=== PATIENT | female | born 1975 | race Caucasian/White ===

== ENCOUNTER → 2016-05-20 | Outpatient (CLI) | payer OTHER ==
[~2016-05-20] MED LIST: ALPR0.25 PO; BUPR75TA5 PO; DULO20CA PO; FOLI1TAB16 PO; GABA-585 PO; GADOBUTROL 7.5 MMOL/7.5 ML VIAL IV ONE; LUBI8CAP3 PO; METH2.5T PO; OXYC-323 PO
--- NOTE | 2016-05-20 14:14 | KCIC ---
PROCEDURE MRI brain without and with contrast HISTORY Benign microadenoma, loss of peripheral vision, history of migraine headaches, confusion, memory loss TECHNIQUE Pre and post-contrast, multiplanar, multi sequential MR imaging was performed of the brain including dedicated images of the pituitary gland. Contrast: 13 cc Gadavist COMPARISON February 02, 2015 FINDINGS There is some motion degradation. There is again mild deviation of the infundibulum to the left. Overall size of the pituitary gland is within normal limits. Previously suggested focus of decreased enhancement of the central pituitary gland is difficult to confidently visualize on this exam. There is no new intracranial abnormality. There is some nonspecific increased CSF signal of the optic nerve sheaths bilaterally as seen previously. Paranasal sinuses are overall aerated. There is patchy mild thickening of the mastoid air cells bilaterally greater on the right as seen previously. There is preservation of the major arterial intracranial flow voids at the skull base although somewhat diminutive caliber of the basilar and vertebral artery flow voids which can be associated with presence of posterior communicating arteries although vasculature not fully evaluated. Cerebellar tonsils are normal in location. There is preservation of the marrow signal of the clivus. IMPRESSION 1. Previously suggested focus of decreased enhancement of the pituitary gland is difficult to confidently visualize on this exam, no new abnormality of the pituitary gland. There is no new intracranial abnormality. There is nonspecific increased CSF signal of the optic nerve sheaths bilaterally as seen previously. Findings may be incidental unless there is clinical suspicion for intracranial hypertension. Electronically signed by: Juan Magana MD (May 20, 2016 14:12:26)
== END | disposition home or self-care (01) ==
LOC: KCIC MRI 11:55
PROVIDERS: ATTEND Internal Medicine
DX: D35.2 Benign neoplasm of pituitary gland (principal)
CPT/HCPCS: 70553; A9585

== ENCOUNTER → 2016-10-07 | Outpatient (CLI) | payer OTHER ==
[~2016-10-07] MED LIST changes: -GADOBUTROL 7.5 MMOL/7.5 ML VIAL IV ONE
--- NOTE | 2016-10-07 13:55 | KCIC ---
EXAM: Cervical spine MRI without contrast. HISTORY: Neck pain and cervical radiculopathy. TECHNIQUE: Multiplanar, multisequence magnetic resonance imaging of the cervical spine was performed without contrast. COMPARISON: None. FINDINGS: There is no significant listhesis. The vertebral bodies are normal in height and the disc spaces are preserved. No spinal cord lesion is seen. The skull base and posterior fossa are unremarkable. There is a minimal shallow posterior central disc protrusion at C6-C7. There is minimal to mild facet arthropathy at multiple levels. There is no significant foraminal or central canal stenosis. IMPRESSION: No acute finding or significant foraminal or central canal stenosis. Electronically signed by: Shira Rose MD (10/07/2016 1:51 PM)
== END | disposition home or self-care (01) ==
LOC: KCIC MRI 12:49
PROVIDERS: ATTEND Internal Medicine
DX: M54.12 Radiculopathy, cervical region (principal); M12.88 Other specific arthropathies, not elsewhere classified, other specified site; M50.223 Other cervical disc displacement at C6-C7 level
CPT/HCPCS: 72141

== ENCOUNTER → 2017-01-02 | Outpatient (CLI) | payer OTHER ==
[~2017-01-02] MED LIST changes: +GADOBUTROL 7.5 MMOL/7.5 ML VIAL IV ONE; -LUBI8CAP3 PO; +LUBI8CAP4 PO
--- NOTE | 2017-01-02 11:48 | KCIC ---
MRI Brain with and without contrast History: Daily headaches, tunnel vision, bilateral field defects Technique: Multiplanar, multi sequential pre and postcontrast MR imaging was performed of the brain. Contrast: 13 cc Gadavist Comparison: May 20, 2016 Findings: There is no new intracranial abnormality. There is subtle vague focus of slightly decreased enhancement of the more central anterior pituitary gland up to 4 mm transverse by 2 to 3 mm CC by 3 mm AP as seen on coronal image 13 series 12 and sagittal image 10 series 11. Findings are difficult to visualize on the May 2016 exam although findings stable compared with the January 10, [id number] exam. No new abnormality is identified of the pituitary gland. There is no new asymmetric enhancement of the cavernous sinuses or Meckel's caves. Impression: 1. Subtle vague focus of slightly decreased enhancement of the anterior central pituitary gland is stable back to January 2015 exam, uncertain if a true hypoenhancing lesion or volume averaging with adjacent bone, no new abnormality of the pituitary gland. Electronically signed by: Kameron Magana MD (01/02/2017 11:45 AM) [facility]-[email or web address]
== END | disposition home or self-care (01) ==
LOC: KCIC MRI 09:57
PROVIDERS: ATTEND Internal Medicine
DX: H53.483 Generalized contraction of visual field, bilateral (principal); R51 Headache
CPT/HCPCS: 70553; A9585

== ENCOUNTER → 2017-07-06 | Outpatient (CLI) | payer OTHER | END | disposition home or self-care (01) | LOC: KCIC MRI 15:54 | DX: M54.6 Pain in thoracic spine (principal) | CPT/HCPCS: 72146 ==

== ENCOUNTER → 2017-08-12 | Outpatient (CLI) | payer OTHER ==
[2017-08-12] MEDS: GADOBUTROL 7.5 MMOL/7.5 ML VIAL IV ×2 (15:29)
== END | disposition home or self-care (01) ==
LOC: KCIC MRI 14:31
DX: R93.8 Abnormal findings on diagnostic imaging of other specified body structures (principal)
CPT/HCPCS: 72147; A9585

== ENCOUNTER → 2018-01-04 | Outpatient (CLI) | payer OTHER ==
[~2018-01-04] MED LIST changes: +CYAN1TAB28 PO; +ERGO500027 PO; -GADOBUTROL 7.5 MMOL/7.5 ML VIAL IV ONE; +MODA100T2 PO; +OMEP20TA63 PO; +OXYC10TA PO; +OXYC20TA34 PO; +RIZA10TA PO; +URSO250T9 PO
--- NOTE | 2018-01-04 15:35 | PAIN ---
DATE OF SERVICE: 01/04/2018 CHIEF COMPLAINT: Low back and left greater than right lower extremity pain. HISTORY OF PRESENT ILLNESS: This is a 42-year-old female who presents with history of pain for 10 plus years by her reports without any specific injury or accident she is aware of but gradually increasing overtime. Over the last 6 months or so, it has been getting much worse, mainly in the low back, mid back, and upper back. The patient reports it is radiating to her lower extremities more on the left side than the right, radiating to the lateral aspect of the thigh, anterior thigh, medial lower leg and medial calf. The patient reports it is also on the right side but not nearly as radiating. The patient reports it is across the low back, mid back, upper back shoulders, neck, again worse on the left side. The patient reports this is a constant pain that is sharp, stabbing, throbbing, shooting, numbness and tingling, radiating, aching and burning in quality in the distribution as well. The patient did have MRI scans of the cervical, lumbar and thoracic spines with lumbar spine showing degenerative disk disease throughout the L2-L3, L3-L4, L4-L5 and L5-S1 disk spaces but without significant central or lateral stenosis. Thoracic spine showing described cystic foci, which are not enhanced compatible with cyst. No significant thoracic or spinal stenosis or neural foraminal stenosis. The patient's cervical spine MRI showing posterior central disk protrusion C6-C7 but without significant foraminal or central spinal stenosis. Again, these lumbar spines were performed in 06/2016, thoracic in 08/2017 and cervical in 09/2017. The patient reports again significant pain mainly in the low back but then radiating into the mid, upper back as well as left lower extremity greater than right. The patient rates her disability rating from 0-10, 10 being the worst; a 9 with family and home responsibilities, recreation, social activities; 8 with sexual behavior; 7 with self-care and life support activities and 10 with occupational activities. The patient reports no loss of motor function but significant weakness and some stumbling with the left lower extremity, which fatigues much more easily than the right. The patient reports it awakens her from sleep 2-3 times a night, can affect her bowel or bladder control, but usually it is an increased urgency but no incontinence. The reports it does affect her ability to walk especially with left leg. She has had previous trigger point injections, physical therapy, chiropractic treatment, counseling as well as exercise, which is ongoing currently and doing physical therapy exercises on her own. The patient is also taking OxyContin 20 mg daily or twice daily oxycodone for breakthrough pain. She has tried Lyrica, hydrocodone, gabapentin without significant improvement where the oxycodone does help fairly significantly. ALLERGIES: THE PATIENT IS ALLERGIC TO CLINDAMYCIN. PAST MEDICAL HISTORY: Significant for obesity, headaches, dizziness, pituitary tumor, previous irritable bowel syndrome. PAST SURGICAL HISTORY: Include gastric sleeve in 2018, also previous hysterectomy in 2017 and x 2. CURRENT MEDICATIONS: Include Xanax, Amitiza, modafinil, oxycodone both extended release and intermediate release, Prilosec, Maxalt, ursodiol, vitamin D and vitamin B12. FAMILY HISTORY: Significant for multiple sclerosis, heart disease, diabetes, epilepsy, thyroid disease and cancers. SOCIAL HISTORY: The patient does not drink alcohol, does not smoke, does not use any illegal illicit or recreational drugs. She is , lives with her spouse, has 3 children living home with locally in [place], [place]. REVIEW OF SYSTEMS: Positive for those items mentioned in the history of present illness. All systems reviewed. It is complete, full and well documented on the patient's chart. PHYSICAL EXAMINATION: VITAL SIGNS: The patient's blood pressure is 124/70, pulse 77, respirations 18, temperature is 98.2 degrees Fahrenheit, height is 5 feet 8 inches, weight is 253 pounds. GENERAL: The patient is awake, alert, oriented, appropriate and very pleasant demeanor. HEENT: Head shows normocephalic and atraumatic. Extraocular movements are intact and symmetrical. Oral cavity: Mucous membranes moist and pink. Dentition is intact. The patient has a piercing on the right cheek. NECK: Shows anterior throat supple without palpable lymphadenopathy noted. Swallow reflex is symmetrical. CHEST: Shows normal on inspection. Breath sounds clear to auscultation bilaterally. HEART: Shows S1 and S2 clear. No murmurs auscultated. ABDOMEN: Soft, nontender and nondistended. No palpable organomegaly is noted. No rebound or guarding demonstrated. BACK: Shows spine grossly in the midline. Normal-appearing thoracic kyphosis, cervical lordotic curvature and lumbar lordotic curvature. No previous bruises, lesions, rashes, or scars noted. The patient's cervical paraspinous musculature shows symmetrical on inspection. Palpation shows some mild tenderness but only diffusely without radiation in the inferior and middle aspect of the cervical paraspinous musculature, bilaterally but without difficulty with rotational motion, which is complete, greater than 45 degrees, closer to 90 degrees right and left lateral as well as extension and full forward flexion without significant pain reported. The patient's upper back shows moderate tenderness in the palpation of the thoracic paraspinous musculature as well as rhomboid distribution but only diffusely without trigger points without radiation. Lumbar spine shows more firm musculature bilaterally in the lumbar paraspinous musculature but without significant trigger points, no radiation of pain, no tenderness over the spinous processes, sacrum or sacroiliac regions. The patient shows good rotation of motion of the lumbar spine, both laterally greater than 10 degrees right and left as well as extension greater than 10 degrees, forward flexion 45 degrees without significant pain reported. No tenderness with these maneuvers as well. EXTREMITIES: Lower extremities show deep tendon reflexes at 2+ in the patella and 1+ tendo calcaneus tendons. Motor exam is strong with approximately 4 on a scale of 5 left dorsiflexion and extension and 5/5 on the right. Peripheral pulses are 1+ posterior tibial. No peripheral edema is noted. The patient does have positive straight leg raise at about 45 degrees on the left side only, which has decreased with knee flexion. Right side is negative. Gaenslen's and Gilbert's maneuvers are negative bilaterally as well. The patient is able to stand, stand on her toes without significant difficulty or loss of balance. The patient shows normal appearing gait with walking, does not appear to favor right or left lower extremity significantly and not using any assistive devices to ambulate. SKIN: Shows warm and dry, good turgor. No edema. No sores, rashes or bruises. IMPRESSION: 1. This is a 42-year-old female with approximate 10-plus year history of low back, left greater than right lower extremity pain but with increasing pain over the past 6 months in a radicular fashion on the left side. 2. MRI scans as noted. 3. Obesity. 4. Fibromyalgia. PLAN: Options were discussed with the patient including conservative medical management, physical therapy, interventional techniques. The patient had multiple physical therapies. She is currently doing exercises on her own and chiropractic treatments. She would like to proceed with interventional techniques. We discussed a lumbar epidural steroid injection using description as well as anatomical models to describe the procedure. The patient will wait for preauthorization with her insurance provider and with this obtained, we will have her return for lumbar epidural steroid injection at that time. AGNIESZKA PATTON MD DR: DAVID/norma JOB#: [id number] / [id number]
== END | disposition home or self-care (01) ==
LOC: PNCL 09:29
PROVIDERS: ATTEND Anesthesiology
DX: M51.36 Other intervertebral disc degeneration, lumbar region (principal); M79.604 Pain in right leg; M79.605 Pain in left leg; E66.9 Obesity, unspecified; Z86.69 Personal history of other diseases of the nervous system and sense organs; Z90.710 Acquired absence of both cervix and uterus; Z82.49 Family history of ischemic heart disease and other diseases of the circulatory system; Z83.3 Family history of diabetes mellitus
CPT/HCPCS: 99214

== ENCOUNTER → 2019-03-22 | Outpatient (CLI) | payer OTHER ==
[~2019-03-22] MED LIST changes: +GADOTERATE 7.5 MMOL/15ML VIAL. IVP ONE; +IRON1TAB30 PO; -OXYC-323 PO; +OXYC1TAB15 PO
--- NOTE | 2019-03-22 13:55 | KCIC ---
MRI Brain with and without contrast History: Hyperprolactinemia Technique: Multiplanar, multi sequential pre and postcontrast MR imaging was performed of the brain. Comparison: January 02, 2017 Findings: There is again vague focus of slightly decreased enhancement of the central anterior aspect of the sella overall unchanged in appearance as seen coronal image 12 series 16 about 4 mm transverse by 2 mm CC by about to 2-3 mm AP. There is patchy mild thickening and fluid of the right mastoid air cells, minimal thickening on the left as seen previously. There is patchy very mild ethmoid air cell mucosal thickening. No new significant focal signal abnormality is identified of the brain parenchyma. There is no nodular parenchymal or leptomeningeal enhancement. Impression: 1. Vague focus of decreased enhancement of the central anterior aspect of the sella is stable. There is no new intracranial abnormality. Electronically signed by: Kameron Magana MD (03/22/2019 1:52 PM) [facility]-[email or web address]
== END | disposition home or self-care (01) ==
LOC: KCIC MRI 11:00
PROVIDERS: ATTEND Family Medicine
DX: E22.1 Hyperprolactinemia (principal); J34.89 Other specified disorders of nose and nasal sinuses
CPT/HCPCS: 70553; A9575

== ENCOUNTER → 2020-07-05 | Outpatient (CLI) | payer OTHER ==
[~2020-07-05] MED LIST changes: -GADOTERATE 7.5 MMOL/15ML VIAL. IVP ONE; +URSO250T10 PO; -URSO250T9 PO
--- NOTE | 2020-07-05 16:32 | KCIC ---
MR CERVICAL SPINE WO History:Reason: CHRONIC PAIN / Spl. Instructions: Updated imaging for pain management. / History: Chr onin worsening pain and worsening numbness in all extremities. Technique: Multiplanar, multi sequential noncontrast MR imaging was performed of the cervical spine. Comparison: January 07, 2019 Findings: Normal vertebral body height and alignment. No fracture. No pathologic signal abnormality within the cervical spinal cord. C2-C3: No canal or neuroforaminal narrowing. C3-C4: No canal or neuroforaminal narrowing. C4-C5: No canal or neuroforaminal narrowing. C5-C6: Minimal disc bulge. No canal narrowing. No neuroforaminal narrowing. Mild facet arthropathy. C6-C7: Small disc bulge. No canal or neuroforaminal narrowing. Mild facet arthropathy. C7-T1: No canal or neuroforaminal narrowing. Mild facet arthropathy. Upper thoracic spondylosis characterized on dedicated thoracic spine MRI. Impression: 1. Mild cervical spondylosis. No significant canal or neuroforaminal narrowing. Electronically signed by: Sung Harvey DO (07/05/2020 4:30 PM) [id number]
--- NOTE | 2020-07-05 16:40 | KCIC ---
MRI THORACIC SPINE WO History:Reason: CHRONIC PAIN / Spl. Instructions: Updated imaging for pain management. / History: Chr onin worsening pain and worsening numbness in all extremities. Technique: Multiplanar, multi sequential noncontrast MR imaging was performed of the thoracic spine. Comparison: January 07, 2019 Findings: Normal vertebral body height and alignment. No fracture. No pathologic signal abnormality within the thoracic spinal cord. Mild multilevel thoracic spondylosis with small disc protrusions notably at T2-T3, T6-T7, and T10-T1 1. Mild cord flattening T6-T7 and T2-T3. No significant canal narrowing. Lower thoracic facet arthrop athy. Mild T10-T11 neuroforaminal narrowing. Unchanged right posterior mediastinal cystic lesion measures 0.8 x 1.0 cm adjacent to the T7 vertebra l body unchanged additional cystic lesion on the left adjacent to the T9 vertebral body measures 2.0 x 1.1 cm. Impression: 1. Mild thoracic spondylosis unchanged. 2. Unchanged appearance of bilateral extrapleural cysts. Electronically signed by: Sung Harvey DO (07/05/2020 4:38 PM) [id number]
--- NOTE | 2020-07-05 16:47 | KCIC ---
MR LUMBAR SPINE WO -[id number] History: Reason: CHRONIC PAIN / Spl. Instructions: Updated imaging for pain management. / History: Technique: Multiplanar, multi sequential MR imaging was performed of the lumbar spine. Comparison: June 25, 2016 Findings: Normal vertebral body height and alignment. No fracture. Conus terminates at the normal location. No evidence of nerve root clumping. L1-L2: No canal or neuroforaminal narrowing. L2-L3: Minimal disc bulge. Mild facet arthropathy. No canal or neuroforaminal narrowing. L3-L4: Minimal disc bulge with slight disc extrusion extending inferiorly. No canal narrowing. Moder ate facet arthropathy. Subarticular recess narrowing, left greater than right. Right foraminal disc p rotrusion and annular fissure. Mild right neuroforaminal narrowing. No left neuroforaminal narrowing. L4-L5: Disc bulge. No canal narrowing. Facet arthropathy with left synovial cyst extending into the left neuroforamen measures 0.9 x 0.7 cm abutting and displacing the exiting left L4 nerve root contri buting to narrowing (series 5 image 12), increased compared to prior. No right neuroforaminal narrowi ng. L5-S1: Moderate facet arthropathy. No canal narrowing. No neuroforaminal narrowing. Impression: 1. Multilevel lumbar spondylosis most prominent L3-L4 and L4-L5, progressed compared to prior. 2. Left L4-5 facet arthropathy with synovial cyst extending into the left neuroforamen contributing to mass effect on the exiting left L4 nerve root. Correlate for radiculopathy. Electronically signed by: Sung Harvey DO (07/05/2020 4:45 PM) [id number]
== END ==
LOC: KCIC MRI 13:58
PROVIDERS: ATTEND Family Medicine
DX: M47.817 Spondylosis without myelopathy or radiculopathy, lumbosacral region (principal); M47.813 Spondylosis without myelopathy or radiculopathy, cervicothoracic region; M71.38 Other bursal cyst, other site
CPT/HCPCS: 72141; 72146; 72148